=== PATIENT | female | born 1955 | race Caucasian/White ===

== ENCOUNTER 2022-11-27 17:18 | Emergency (ER) | payer MEDICARE ==
[2022-11-27] MEDS ORDERED: HYDROmorphone 1 MG/ML Syringe IM ONE (17:37)
[2022-11-27] MEDS ORDERED: Ondansetron 4 MG/2 ML SDV IVPUSH ONE (18:08)
[2022-11-27] MEDS ORDERED: Propofol 200 MG/20 ML SDV IVPUSH ONE (18:10)
[2022-11-27] MEDS ORDERED: Sodium Chloride 0.9% 1,000 ML IV SCH (18:15)
== END 2022-11-27 20:00 | disposition home or self-care (01) ==
LOC: JP.ED 17:18
DX: S52.532A Colles' fracture of left radius, initial encounter for closed fracture (principal); S52.612A Displaced fracture of left ulna styloid process, initial encounter for closed fracture; V18.9XXA Unspecified pedal cyclist injured in noncollision transport accident in traffic accident, initial encounter; Y92.480 Sidewalk as the place of occurrence of the external cause
CPT/HCPCS: 25605; 73080; 73100; 73110; 96372; 96374; 99283; J1170; J2405; J2704; J7030